=== PATIENT | female | born 1960 | race Caucasian/White ===

== ENCOUNTER 2017-08-16 08:37 | Inpatient (IN) | payer OTHER ==
[2017-08-16] VITALS (12 sets, daily range): BP systolic 100–218; BP diastolic 47–158
[~2017-08-16] VITALS: Ht 165.1 cm; Wt 82.1 kg
--- NOTE | ~2017-08-16 | EKG ---
[place] [address] ELECTROCARDIOGRAM REPORT Name: JOHN GARY Room: [address] IN .R.#: [id number] Admission: 08/16/17 Attend Phys: Marko Venegas MD, Discharge: Date of : 64 Report #: [id number] THIS REPORT FOR: //name// [facility] Test Date: 2017-08-16 Test Time: 11:47:12 Pat Name: JOHN LIU Department: Room: Gender: F Screw Supervisor: ALEX : 1960 Requested By: Felix Escalante Order Number: [id number] MD: Measurements Intervals [place] Rate: 78 P: 57 SD: 157 QRS: 22 QRSD: 99 T: 37 QT: 401 QTc: 457 Interpretive Statements Sinus rhythm Inferior infarct, acute (RCA) Probable RV involvement, suggest recording right precordial leads No previous ECG available for comparison [email or web address] By: 1147 1147 Epiphany EpiphanyMD /EPI
[2017-08-16 09:10] LABS: ABSOLUTE BASOPHILS 0.1 thou/uL (0.0-0.2); ABSOLUTE EOSINOPHILS 0.3 thou/uL (0.0-0.7); ABSOLUTE LYMPHOCYTES 5.3 thou/uL (0.8-5.3); ABSOLUTE NEUTROPHILS 5.3 thou/uL (1.6-8.1); BASOPHILS 0.9 %; EOSINOPHILS 2.3 %; HEMATOCRIT 42.2 % (37.0-47.0); HEMOGLOBIN 14.1 gm/dL (12.0-15.0); LYMPHOCYTES 44.5 %; MCH 27.6 pg (26.0-34.0); MCHC 33.4 g/dL (28.0-37.0); MCV 82.6 fL (80.0-100.0); MONOCYTES 7.9 %; NUCLEATED RBCS 0 /100WBC; PLATELET COUNT* 333 thou/uL (150-400); POLYS 44.4 %; RBC 5.11 mil/uL (4.20-5.00); RDW-CV 15.2 % (10.5-14.5)
[2017-08-16 09:18] LABS: ANION GAP 14 mmol/L (7-16); BUN 15 mg/dL (7-18); CALCIUM 9.5 mg/dL (8.5-10.1); CHLORIDE 102 mmol/L (98-107); CO2 23 mmol/L (21-32); CREATININE 0.9 mg/dL (0.6-1.3); GLUCOSE 180 mg/dL (70-99); POTASSIUM 3.4 mmol/L (3.5-5.1); SODIUM 139 mmol/L (136-145)
[2017-08-16 09:21] LABS: APTT 83.5 Seconds (25.0-31.3); INR 1.1; PROTIME 11.1 Seconds (9.20-11.50)
[2017-08-16 09:25] LABS: ALBUMIN 4.2 g/dL (3.4-5.0); ALKALINE PHOSPHATASE 161 U/L (46-116); CHOLESTEROL 322 mg/dL (<200); HDL CHOLESTEROL 41 mg/dL (>40); LDL CHOLESTEROL 228 mg/dL (<100); SERUM ASSESSMENT Clear; SGOT 46 U/L (15-37); SGPT 45 U/L (30-65); TC:HDL 7.9 Ratio (Not establshd); TOTAL BILIRUBIN 0.6 mg/dL (<0.1-1.0); TRIGLYCERIDE 268 mg/dL (<150); TROPONIN-I LEVEL <0.06 ng/mL (<0.06); VLDL 54 mg/dL (<40)
--- NOTE | 2017-08-16 16:30 | CARD ---
[address] [address] CARDIAC CATH REPORT Name: JOHN GARY Room: [address] ADM IN .R.#: [id number] Admission: 08/16/17 Attend Phys: Marko Venegas MD, Discharge: Date of : 64 Report #: [id number] THIS REPORT FOR: //name// APPROVED REPORT Study performed: 08/16/2017 08:49:42 Patient Details Patient Status: ED Room #: The patient is a 56 year-old female Event Personnel Augustine Eric Conciliator, Marko Venegas Conciliator, Oneyda Germain RN Sill Worker, Ever Cordero (R) Monitor, KokiJaja lisa RTR Scrub Procedures Performed Art Access - R femoral artery* CINDI Place w/wo Plasty Single RCA Hemostasis w/ Angioseal Indication STEMI (>0 to less than or equal to 6 hours) Risk Factors Hypercholesterolemia, Hypertension Admission/Lab Medications/Medications given during procedure Aspirin, Platelet Aff. Inhib., Beta Krista, Heparin IV 4000 units, Heparin Drip IV 900 units per hr, Angiomax IV 10.5 ml, Angiomax Drip IV 27.65 ml per hr, Lopressor IV 5 mg, Nitroglycerin IC 200 mcg, 0.9% Sodium Chloride IV 125 ml per hr, Ticagrelor PO 180 mg, Heparin IV 4000 units, Heparin IV 4000 units, Heparin IV 4000 units, Heparin IV 4000 units, Heparin IV 4000 units, Heparin IV 4000 units Procedure Narrative The patient was brought emergently to the Cardiac Catheterization Laboratory and was prepped and draped in a sterile manner. The right femoral was infiltrated with 2% Lidocaine subcutaneous anesthesia. A 6fr Ultimum Sheath sheath was inserted into the . Coronary angiography was performed using coronary diagnostic catheters. The right coronary system was accessed and visualized with a 6Fr. JR4 catheter. The left coronary system was accessed and visualized with a 6Fr.JL4 catheter. The left ventricle was accessed and visualized with a 6Fr. PIG catheter. Left ventricular/Aortic Valve gradient assessed via catheter pullback. [place] [address] CARDIAC CATH REPORT Name: JOHN GARY Room: [address] IN [facility]#: [id number] Admission: 08/16/17 Attend Phys: Marko Venegas MD, Discharge: Date of : 64 Report #: [id number] projection. Pre-demployment femoral angiogram was performed . Closure device was deployed with a 6 Fr Angioseal. The patient tolerated the procedure well and there were no complications associated with the procedure. There was no hematoma. Fluoro Time: 15.2 minutes Dose: DAP 187058 cGycm2 1949 mGy Contrast Type and Amount: Visipaque 350 ml Coronary Angiography The patient's coronary anatomy is right dominant. Diagnostic Cath Left Main 0% narrowing LAD 30% mid vessel narrowing Circumflex 60% narrowing of the midportion of the nondominant circumflex Right Coronary 100% mid vessel occlusion with intraluminal thrombus Left Ventriculography The left ventricle is normal in size with contractility. The left ventricular ejection fraction is estimated to be 50%. Left ventricular wall motion abnormalities are present. There is no mitral insufficiency. Inferobasilar hypokinesis is noted on left ventriculography IVUS Anticoagulation was achieved with . Angiomax Intravascular Ultrasound was performed on the mid right coronary artery vessel. Hemodynamics The aortic pressure is 175/89 mmHg with a mean of 124 mmHg. The left ventricular pressure is 117/6 mmHg with a mean of mmHg. The left ventricular end diastolic pressure is 16 mmHg. There was no gradient across the aortic valve upon pullback. PCI Technique Lesion Patient was preloaded with Angiomax IV 10.5 ml. Percutaneous coronary intervention was performed on the mid right coronary artery. The lesion stenosis prior to intervention was 100% with ELLEN 0 flow. A 6Fr. JR4 Guide Catheter was used to engage the ostium. A IG: ProwaterFlex 180CM Interventional Guidewire was [place] [address] CARDIAC CATH REPORT Name: JOHN GARY Room: [address] IN .R.#: [id number] Admission: 08/16/17 Attend Phys: Marko Venegas MD, Discharge: Date of : 64 Report #: [id number] BALLOON DILATION A Balloon catheter Trek RX 2.25 X 12 was inserted and inflated up to 10.00atm for 12seconds. Repeat angiography revealed the following post-dilatation results: 50% narrowing. STENT DEPLOYMENT A stent Xience Alpine RX 2.5X15, 2.5x8 was inserted and inflated up to 10.00atm for 12seconds. Additional Inflation: 8.00atm for 14seconds. POST STENT DEPLOYMENT BALLOON DILATION A Balloon catheter Manifold was inserted and inflated up to jarred for seconds. Final angiography reveals 0 % stenosis with ELLEN 3 flow. PCI Technique Lesion Anticoagulation was achieved with Angiomax. Percutaneous coronary intervention was performed on the mid right coronary artery. STENT DEPLOYMENT A stent Xience Alpine RX 2.5X8 was inserted and inflated up to 10.00atm for 10seconds. POST STENT DEPLOYMENT BALLOON DILATION A Balloon catheter Manifold was inserted and inflated up to jarred for seconds. Conclusion #[address] segment elevation myocardial infarction #2 significant coronary artery disease characterized by the following: A 100% mid right coronary occlusion with intraluminal thrombus B 30% mid LAD narrowing C 60% narrowing of the midportion of the nondominant circumflex #3 mild impairment in global left ventricular systolic function, estimated ejection fraction being 50% with inferobasilar hypokinesis #4 successful percutaneous coronary intervention with deployment of sequential drug-eluting stents at the site of 100% [place] [address] CARDIAC CATH REPORT Name: JOHN GARY Room: [address] IN .R.#: [id number] Admission: 08/16/17 Attend Phys: Marko Venegas MD, Discharge: Date of : 64 Report #: [id number] occlusion with 0% residual narrowing ELLEN-3 flow to the distal vessel and no residual thrombus Recommendations Cardiac Risk Reduction Program Aggressive Medical Therapy Medications Administered Aspirin (any) Ticagrelor Diagnostic Cath Approved by: Augustine Eric MD Date/Time: 08/16/17 at 1629 hrs. <ELECTRONICALLY SIGNED> By: Marko Venegas MD, FACC 08/16/171628 28 28Marko Venegas MD, FACC /INF
[2017-08-17] VITALS (11 sets, daily range): BP systolic 80–128; BP diastolic 47–81
[2017-08-17 03:52] LABS: ABSOLUTE BASOPHILS 0.1 thou/uL (0.0-0.2); ABSOLUTE EOSINOPHILS 0.1 thou/uL (0.0-0.7); ABSOLUTE LYMPHOCYTES 3.2 thou/uL (0.8-5.3); ABSOLUTE MONOCYTES 1.2 thou/uL (0.0-1.2); ABSOLUTE NEUTROPHILS 7.1 thou/uL (1.6-8.1); BASOPHILS 0.5 %; EOSINOPHILS 0.8 %; HEMATOCRIT 39.4 % (37.0-47.0); HEMOGLOBIN 12.8 gm/dL (12.0-15.0); LYMPHOCYTES 27.4 %; MCH 27.2 pg (26.0-34.0); MCHC 32.6 g/dL (28.0-37.0); MCV 83.2 fL (80.0-100.0); MONOCYTES 10.3 %; NUCLEATED RBCS 0 /100WBC; PLATELET COUNT* 291 thou/uL (150-400); RBC 4.73 mil/uL (4.20-5.00); RDW-CV 15.4 % (10.5-14.5); WBC 11.6 thou/uL (4.0-11.0)
[2017-08-17 04:14] LABS: ALBUMIN 3.5 g/dL (3.4-5.0); CALCIUM 9.1 mg/dL (8.5-10.1); CREATININE 1.1 mg/dL (0.6-1.3); POTASSIUM 3.8 mmol/L (3.5-5.1); TOTAL BILIRUBIN 0.5 mg/dL (<0.1-1.0); TOTAL PROTEIN 6.7 g/dL (6.4-8.2)
[2017-08-17 04:19] LABS: TROPONIN-I LEVEL 85.85 ng/mL (<0.06)
--- NOTE | 2017-08-17 13:06 | EKG ---
[place] [address] ELECTROCARDIOGRAM REPORT Name: JOHN GARY Room: [address] ADM IN M.R.#: [id number] Admission: 08/16/17 Attend Phys: Marko Venegas MD, Discharge: Date of : 64 Report #: [id number] THIS REPORT FOR: //name// [facility] Test Date: 2017-08-16 Test Time: 11:47:12 Pat Name: JOHN LIU Department: Room: [address] Gender: F Last Repairer Helper: UNK : 1960 Requested By: Augustine Eric Order Number: [id number] Paulino MD: Tristan Marks Measurements Intervals [place] Rate: 78 P: 57 [place]: 157 QRS: 22 QRSD: 99 T: 37 QT: 401 QTc: 457 Interpretive Statements Sinus rhythm Inferior infarct, acute (RCA) Probable RV involvement, suggest recording right precordial leads No previous ECG available for comparison Electronically Signed On 08-17-2017 13:06:27 CDT by Tristan Marks [email or web address] <ELECTRONICALLY SIGNED> By: Tristan Marks MD, [facility] 08/17/17 1306 1147 1147 Tristan Marks MD, [facility] /EPI
--- NOTE | 2017-08-17 13:09 | EKG ---
[place] [address] ELECTROCARDIOGRAM REPORT Name: JOHN GARY Room: [address] ADM IN M.R.#: [id number] Admission: 08/16/17 Attend Phys: Marko Venegas MD, Discharge: Date of : 64 Report #: [id number] THIS REPORT FOR: //name// [facility] Test Date: 2017-08-17 Test Time: 07:40:24 Pat Name: JOHN LIU Department: Room: [address] Gender: F Director Of Surgery: 27 : 1960 Requested By: Augustine Eric Order Number: [id number] Reading : Tristan Marks Measurements Intervals [place] Rate: 61 P: 54 MD: 146 QRS: -18 QRSD: 90 T: -59 QT: 541 QTc: 545 Interpretive Statements Sinus rhythm Inferoposterior infarct, age indeterminate Prolonged QT interval No previous ECG available for comparison Electronically Signed On 08-17-2017 13:08:50 CDT by Tristan Marks [email or web address] <ELECTRONICALLY SIGNED> By: Tristan Marks MD, [facility] 08/17/17 1308 0740 0740 Tristan Marks MD, [facility] /EPI
[2017-08-18] VITALS (8 sets, daily range): BP systolic 81–159; BP diastolic 42–96
[2017-08-18 03:45] LABS: HEMATOCRIT 36.5 % (37.0-47.0); HEMOGLOBIN 11.9 gm/dL (12.0-15.0); MCH 27.6 pg (26.0-34.0); MCHC 32.6 g/dL (28.0-37.0); MCV 84.5 fL (80.0-100.0); MPV 7.7 fl. (7.2-11.1); RBC 4.32 mil/uL (4.20-5.00); RDW-CV 15.1 % (10.5-14.5); WBC 10.6 thou/uL (4.0-11.0)
[2017-08-18 04:09] LABS: ALBUMIN 3.2 g/dL (3.4-5.0); CALCIUM 8.5 mg/dL (8.5-10.1); MAGNESIUM 1.8 mg/dL (1.8-2.4); POTASSIUM 3.5 mmol/L (3.5-5.1); TOTAL BILIRUBIN 0.4 mg/dL (<0.1-1.0); TOTAL PROTEIN 6.1 g/dL (6.4-8.2)
[2017-08-18 04:12] LABS: TROPONIN-I LEVEL 26.53 ng/mL (<0.06)
[2017-08-18] MEDS ORDERED: LISINOPRIL2.5 MG PO (12:41)
[2017-08-18] MEDS ORDERED: COREG6.25 MG PO (12:41)
[2017-08-18] MEDS ORDERED: PLAVIX 75 MG TA75 M1 PO (12:43)
[2017-08-18] MEDS ORDERED: ATORVASTATIN CA40 MG PO (12:44)
[2017-08-18] MEDS ORDERED: ASPIR 8181 MG PO (12:45)
[2017-08-18] MEDS ORDERED: COLACE100 MG PO (12:45)
[2017-08-18] MEDS ORDERED: BRILINTA90 MG PO (12:47)
--- NOTE | 2017-08-19 12:50 | CON ---
[address] [address] CONSULTATION Name: JOHN GARY Room: [address] IN [facility].#: [id number] Admission: 08/16/17 Attend Phys: Marko Venegas MD, Discharge: 08/18/17 Date of : 64 Report #: [id number] THIS REPORT FOR: //name// CC: FAM unknown Marko Venegas DATE OF SERVICE: 08/16/2017 INDICATION: Inferior wall ST elevation myocardial infarction. HISTORY OF PRESENT ILLNESS: The patient is a 56-year-old female who started having chest pain approximately 8:00 this morning. She presented to the Emergency Room at 8:30 and was found to be in the midst of an inferior wall ST elevation myocardial infarction by echocardiogram. The patient was taken urgently to the cardiac catheterization lab. Catheterization showed a totally occluded mid right coronary artery. The remainder of her coronary vasculature was normal. The patient had percutaneous coronary intervention with 2 drug-eluting stents placed to the mid right coronary artery without complication. The patient is now recovering in the Intensive Care Unit. CARDIAC RISK FACTORS: Include hypertension and dyslipidemia. FAMILY HISTORY: Noncontributory. SOCIAL HISTORY: The patient does use an e-cigarette with a nicotine insert. She does not drink alcohol. REVIEW OF SYSTEMS: A 14-point review of systems otherwise as per HPI. PHYSICAL EXAMINATION: VITAL SIGNS: Stable. Blood pressure 153/95, pulse 88 and regular. GENERAL: This is a pleasant lady in no distress. Mood and affect appropriate. HEENT: Extraocular muscles intact. Mucous membranes are moist. NECK: Shows no jugular venous distention. There are no carotid bruits. CHEST: Reveals clear lung aguilar without wheezes, rales or rhonchi. CARDIOVASCULAR: Reveals a regular rhythm with normal S1 and S2. I do not appreciate gallop or murmur. ABDOMEN: Reveals normal bowel sounds. The abdomen is soft, nontender. EXTREMITIES: Shows no edema. Peripheral pulses 2+ and palpable. SKIN: Warm and dry. LABORATORY DATA: Reviewed. Sodium 139, potassium 3.4, chloride 102, bicarbonate 23, BUN 15, creatinine 0.9, serum glucose 180. LFTs are within normal limits. EGFR is 65. Total protein 8.0. Albumin 4.2. Troponin on arrival was less [place] 0[place]06[place] [address] CONSULTATION Name: JOHN GARY Room: [address]#: [id number] Admission: 08/16/17 Attend Phys: Marko Venegas MD, Discharge: 08/18/17 Date of : 64 Report #: [id number] Total cholesterol 322, triglycerides 260, HDL 41, LDL 228. Protime 11.1, INR 1.1, APTT after heparin 83.5. CBC shows a white blood cell count 12.0, hemoglobin 14.1, platelet count 333,000. Chest x-ray pending. IMPRESSION AND RECOMMENDATIONS: 1. ST elevation myocardial infarction, status post drug-eluting stent placement. Continue dual antiplatelet therapy for 1 year. Start a beta loida. 2. Hyperlipidemia. Start atorvastatin 40 mg daily. 3. Hypertension. Increase beta loida as needed for blood pressure control. 4. Nicotine use. Recommend cessation. <ELECTRONICALLY SIGNED> By: Augustine Eric MD, FACC 08/19/17 1250 1723 1741Augustine Eric MD, FACC /nt
[2017-08-19 16:07] LABS: HEPATITIS B SURFACE AG Negative (Negative)
--- NOTE | 2017-08-29 08:10 | D ---
[address] [address] DISCHARGE SUMMARY Name: JOHN GARY Room: [address] IN M.R.#: [id number] Admission: 08/16/17 Attend Phys: Marko Venegas MD, Discharge: 08/18/17 Date of : 64 Report #: [id number] THIS REPORT FOR: //name// CC: FAM unknown Marko Venegas DATE OF SERVICE: 08/18/2017 DIAGNOSES: 1. ST elevation myocardial infarction, inferior. 2. Status post successful percutaneous coronary intervention of the right coronary artery, which was occluded. 3. Hyperlipidemia. 4. Hypertension. HOSPITAL SUMMARY: This patient is a 56-year-old woman who presented with acute chest pain and inferior ST segment elevation on the day of admission and underwent successful PCI to an occluded RCA mid body. There was intraluminal thrombus with successful PCI. She had moderate disease in the circumflex in the 60% region, this is a nondominant vessel and her left main and LAD had only mild disease. Ejection fraction was felt to be in the 50% range. Postprocedurally, she did fairly well. She had some reperfusion arrhythmia on the first 12 hours after being transferred to the ICU, but it resolved over the last 24 hours of her hospitalization. She remained in a sinus rhythm. She did receive Xience drug-eluting stent 2.5 x 15 mm and then 2.5 x 8 mm in the right coronary artery. She will be given samples for Brilinta for 1 week and then Plavix for 1 year. The patient will follow up with Dr. Eric or [facility] as the patient does not currently have insurance. We will arrange for followup with a nurse practitioner within 2 weeks. DISCHARGE MEDICATIONS: Brilinta 1 p.o. b.i.d., aspirin, Coreg 6.25 mg p.o. b.i.d., lisinopril 2.5 mg daily, atorvastatin 40 mg daily. PERTINENT LABORATORY DATA: Peak troponin level was 85.85. Discharge creatinine 1.0, BUN 17. Total cholesterol 322, LDL 228, HDL 41. <ELECTRONICALLY SIGNED> By: Sourav Gonzalez MD, FACC 08/29/17 0810 1231 [id number] Marks MD, FACC /nt
== END 2017-08-18 14:57 | disposition home or self-care (01) | DRG 247 ==
LOC: M.CL 08:37 → M.ERS 08:37 → M.ICU 10:50 → M.2W 08-18 09:08
PROVIDERS: Emergency Medicine Emergency Medical Services; Family Medicine; Internal Medicine Cardiovascular Disease; ADMIT Internal Medicine
PROC: 4A023N7 Measurement of Cardiac Sampling and Pressure, Left Heart, Percutaneous Approach (ICD-10-PCS; principal; 2017-08-16)
PROC: B211YZZ Fluoroscopy of Multiple Coronary Arteries using Other Contrast (ICD-10-PCS; principal; 2017-08-16)
PROC: B215YZZ Fluoroscopy of Left Heart using Other Contrast (ICD-10-PCS; principal; 2017-08-16)
PROC: 027034Z Dilation of Coronary Artery, One Artery with Drug-eluting Intraluminal Device, Percutaneous Approach (ICD-10-PCS; principal; 2017-08-16)
DX: I21.19 ST elevation (STEMI) myocardial infarction involving other coronary artery of inferior wall (principal); F17.290 Nicotine dependence, other tobacco product, uncomplicated; E66.9 Obesity, unspecified; G43.909 Migraine, unspecified, not intractable, without status migrainosus; I95.9 Hypotension, unspecified; K21.9 Gastro-esophageal reflux disease without esophagitis; Z79.82 Long term (current) use of aspirin; Z95.5 Presence of coronary angioplasty implant and graft; Z88.6 Allergy status to analgesic agent; Z79.899 Other long term (current) drug therapy; Z68.30 Body mass index [BMI] 30.0-30.9, adult

== ENCOUNTER 2018-06-30 08:11 | Inpatient (IN) | payer OTHER ==
[2018-06-30] VITALS (23 sets, daily range): BP systolic 97–166; BP diastolic 56–101
[~2018-06-30] VITALS: Ht 165.1 cm; Wt 69.4 kg
[~2018-06-30 08:11] MED LIST: ASPIR 8181 MG PO; ATORVASTATIN CA40 MG PO; BRILINTA90 MG PO; COLACE100 MG PO; COREG6.25 MG PO; LISINOPRIL2.5 MG PO; PLAVIX 75 MG TA75 M1 PO
--- NOTE | 2018-06-30 08:37 | NUR ---
PT TO THE DUST MILL OPERATOR AT 0825.
[2018-06-30 08:49] LABS: ABSOLUTE BASOPHILS 0.1 thou/uL (0.0-0.2); ABSOLUTE EOSINOPHILS 0.2 thou/uL (0.0-0.7); ABSOLUTE LYMPHOCYTES 3.6 thou/uL (0.8-5.3); ABSOLUTE MONOCYTES 0.9 thou/uL (0.0-1.2); ABSOLUTE NEUTROPHILS 5.6 thou/uL (1.6-8.1); BASOPHILS 0.5 %; EOSINOPHILS 1.5 %; HEMATOCRIT 42.5 % (37.0-47.0); HEMOGLOBIN 14.2 gm/dL (12.0-15.0); MCH 28.3 pg (26.0-34.0); MCHC 33.4 g/dL (28.0-37.0); MCV 84.6 fL (80.0-100.0); MONOCYTES 8.3 %; MPV 8.1 fl. (7.2-11.1); NUCLEATED RBCS 0 /100WBC; PLATELET COUNT* 361 thou/uL (150-400); POLYS 54.7 %; RBC 5.03 mil/uL (4.20-5.00); RDW-CV 14.5 % (10.5-14.5); WBC 10.3 thou/uL (4.0-11.0)
[2018-06-30 08:50] LABS: APTT 23.8 Seconds (25.0-31.3); PROTIME 10.1 Seconds (9.20-11.50)
[2018-06-30 08:56] LABS: ANION GAP 12 mmol/L (7-16); BUN 9 mg/dL (7-18); CALCIUM 9.3 mg/dL (8.5-10.1); CHLORIDE 104 mmol/L (98-107); CO2 27 mmol/L (21-32); CREATININE 0.9 mg/dL (0.6-1.3); GLUCOSE 162 mg/dL (70-99); POTASSIUM 3.7 mmol/L (3.5-5.1); SODIUM 143 mmol/L (136-145); TROPONIN-I LEVEL <0.06 ng/mL (<0.06)
[2018-06-30 09:18] LABS: ALBUMIN 3.8 g/dL (3.4-5.0); ALKALINE PHOSPHATASE 146 U/L (46-116); CK-MB MASS 0.9 ng/mL (<0.5-3.6); LIPASE 199 U/L (73-393); NT-PRO BRAIN NAT PEPTIDE 273 pg/mL (<300); SGOT 25 U/L (15-37); SGPT 31 U/L (30-65); TOTAL BILIRUBIN 0.7 mg/dL (<0.1-1.0); TOTAL PROTEIN 7.3 g/dL (6.4-8.2)
--- NOTE | 2018-06-30 16:32 | NUR ---
ASSUMED CARE OF PATIENT PATIENT VERY SOMNULENT. DENIES PAIN OR SOA.
--- NOTE | 2018-06-30 17:57 | EKG ---
[place] [address] ELECTROCARDIOGRAM REPORT Name: DESI GARY Room: [address] ADM IN .R.#: [id number] Admission: 06/30/18 Attend Phys: Sourav Gonzalez MD, F Discharge: Date of : 64 Report #: [id number] THIS REPORT FOR: //name// [facility] ED Test Date: 2018-06-30 Test Time: 08:19:44 Pat Name: DESI LIU Department: Room: [facility] Gender: F Business Systems Consultant: ROHIT : 1960 Requested By: Felix Escalante Order Number: [id number] MD: Sourav Gonzalez Measurements Intervals [place] Rate: 66 P: 64 [place]: 166 QRS: 81 QRSD: 111 T: 93 QT: 408 QTc: 428 Interpretive Statements Sinus rhythm Probable left atrial enlargement Left ventricular hypertrophy Inferior infarct, acute (RCA) Probable RV involvement, suggest recording right precordial leads Baseline wander in lead(s) II,III,aVF Compared to ECG 08/17/2017 07:40:24 Left ventricular hypertrophy now present inferior injury noted Electronically Signed On 06-30-2018 17:57:18 CDT by Sourav Gonzalez [email or web address] <ELECTRONICALLY SIGNED> By: Sourav Gonzalez MD, [facility] 06/30/18 1757 8 8 Sourav Gonzalez MD, [facility] /EPI
--- NOTE | 2018-06-30 17:58 | EKG ---
[place] [address] ELECTROCARDIOGRAM REPORT Name: DESI GARY Room: [address] ADM IN ..#: [id number] Admission: 06/30/18 Attend Phys: Sourav Gonzalez MD, F Discharge: Date of : 64 Report #: [id number] THIS REPORT FOR: //name// [facility] ED Test Date: 2018-06-30 Test Time: 08:21:55 Pat Name: DESI LIU Department: Room: [facility] Gender: F Powerhouse Mechanic: ROHIT : 1960 Requested By: Felix Escalante Order Number: [id number] MD: Sourav Gonzalez Measurements Intervals [place] Rate: 63 P: 60 [place]: 170 QRS: 77 QRSD: 105 T: 89 QT: 396 QTc: 406 Interpretive Statements Sinus rhythm Inferior infarct, acute (RCA) Probable anterolateral infarct, recent Electronically Signed On 06-30-2018 17:58:01 CDT by Sourav Gonzalez [email or web address] <ELECTRONICALLY SIGNED> By: Sourav Gonzalez MD, [facility] 06/30/18 1758 0 0 Sourav Gonzalez MD, [facility] /EPI
--- NOTE | 2018-06-30 18:00 | EKG ---
[place] [address] ELECTROCARDIOGRAM REPORT Name: DESI GARY Room: [address] ADM IN .R.#: [id number] Admission: 06/30/18 Attend Phys: Sourav Gonzalez MD, F Discharge: Date of : 64 Report #: [id number] THIS REPORT FOR: //name// [facility] Test Date: 2018-06-30 Test Time: 10:13:17 Pat Name: DESI LIU Department: Room: [facility] Gender: F Marketing Senior Recruiter: : 1960 Requested By: Sourav Gonzalez Order Number: [id number] MD: Sourva Gonzalez Measurements Intervals [place] Rate: 99 P: 64 [place]: 192 QRS: 91 QRSD: 116 T: 87 QT: 361 QTc: 464 Interpretive Statements Sinus rhythm Supraventricular bigeminy Right atrial enlargement Left ventricular hypertrophy Inferoposterior infarct, acute (RCA) Probable RV involvement, suggest recording right precordial leads Electronically Signed On 06-30-2018 18:00:06 CDT by Sourav Gonzalez [email or web address] <ELECTRONICALLY SIGNED> By: Sourav Gonzalez MD, FACC 06/30/18 1800 1013 1013 Sourav Gonzalez MD, [facility] /EPI
--- NOTE | 2018-06-30 19:08 | NUR ---
PATIENT CO PAIN IN CHEST. GIVEN MS AND NORCO 10. PAIN RELIEVED. CATH SITE TENDER HEMATOMA 5CM, IV RESTARTED LT FA 20. ESTING AT THIS TIME,
--- NOTE | 2018-06-30 21:28 | NUR ---
PATIENT REQUESTS ALL HER PAIN MEDS, SCHEDULED AND PRN, TO BE GIVEN TO HER AT THE SAME TIME. NOT RECEPTIVE TO EDUCATION ON SPACING OUT PAIN MEDS, STATES HER DR TOLD HER SHE SHOULD TAKE HER PAIN MEDS ON TIME EVEN WHEN SHE IS NOT IN PAIN SO SHE "DOESN'T PLAY CATCH UP". RATES PAIN 8/10, HYDROCODONE, MORPHINE, TYLENOL, NITRO ADMINISTERED ORDERED.
--- NOTE | 2018-06-30 22:58 | NUR ---
PATIENT DOES NOT COMPLAIN OF CHEST PAIN. REPORTS PAIN IS IN SHOULDER AREA AND NORMAL FOR HER WHEN SHE SLEEPS. STATES "I AM NOT SURE IF THE PAIN I'M HAVING IS AROUND MY CHEST OR JUST MUSCLES". NITROX3 GIVEN FOR COVERAGE. PATIENT NOW SLEEPING. ASKS ME TO BRING PRN MEDS ON TIME EVEN IF SHE IS SLEEPING, EDUCATED PATIENT ON THE DIFFERENCE B/N PRN AND SCHEDULED MEDS. PATIENT CALM IN DEMEANOR.
[2018-07-01] VITALS (16 sets, daily range): BP systolic 126–164; BP diastolic 65–97
[2018-07-01 04:44] LABS: HEMATOCRIT 33.9 % (37.0-47.0); MCH 28.3 pg (26.0-34.0); MCHC 33.4 g/dL (28.0-37.0); MCV 84.7 fL (80.0-100.0); MPV 7.8 fl. (7.2-11.1); RDW-CV 14.8 % (10.5-14.5); WBC 11.8 thou/uL (4.0-11.0)
[2018-07-01 04:46] LABS: HEMOGLOBIN 11.3 gm/dL (12.0-15.0)
[2018-07-01 04:59] LABS: CHOLESTEROL 124 mg/dL (<200); HDL CHOLESTEROL 42 mg/dL (>40); LDL CHOLESTEROL 59 mg/dL (<100); TRIGLYCERIDE 117 mg/dL (<150); VLDL 23 mg/dL (<40)
[2018-07-01 05:37] LABS: SERUM ASSESSMENT Clear
[2018-07-01 05:38] LABS: TROPONIN-I LEVEL 50.33 ng/mL (<0.06)
--- NOTE | 2018-07-01 06:40 | NUR ---
VITALS STABLE, HYDRALAZINE X1 FOR BP. AFEBRILE. PATIENT DOES NOT COMPLAIN OF CHEST PAIN, BUT REPORTS RIGHT ARM PAIN WHICH SHE SAYS SHE HAS BEEN HAVING FOR THE LAST COUPLE OF WEEKS AND IS RELEIVED WITH POSITIONING. PATIENT COMPAINING OF NAUSEA, ARM PAIN AND BEING HOT AT 0530, EKG AND TROPONIN PERFORMED. PAIN RELEIVED WITH MORPHINE. NITRO GIVEN FOR COVERAGE, BP WNL. PATIENT NOW COMFORTABLE IN BED, HAS HEATING PAD ON ARM PER HER REQUEST. NO CHANGE IN RIGHT GROIN CATH SITE, PATIENT REPORTS SOME TENDERNESS, NO INCREASED HEMATOMA, WARMTH, ACTIVE BLEEDING. CALL LIGHT WITHIN REACH. TURNS SELF IN BED.
--- NOTE | 2018-07-01 14:17 | CON ---
[address] [address] CONSULTATION Name: DESI GARY Room: [address] IN [facility]#: [id number] Admission: 06/30/18 Attend Phys: Sourav Gonzalez MD, F Discharge: Date of : 64 Report #: [id number] THIS REPORT FOR: //name// CC: Sourav Gonzalez [facility] unknown DATE OF SERVICE: 06/30/2018 CARDIOLOGY CONSULTATION HISTORY OF PRESENT ILLNESS: The patient is a 57-year-old white male who I was asked to see in the Emergency Room today after she complained of chest pain. The patient states that last August, she had a stent placed in her heart here at [place]. She has done well since that time. However, this morning, she was at work at [employer] when she complained of chest pain. An ambulance was called. She was brought here to [place]. She is noted to have an inferior STEMI. I was asked to see her on an emergent basis. She denied any recent chest pain, shortness of breath, syncope. PAST MEDICAL HISTORY: She has had previous tonsillectomy. She has a history of hypertension, hyperlipidemia. MEDICATIONS: Includes Lipitor, Plavix, and aspirin. ALLERGIES: She has allergy to CODEINE. FAMILY HISTORY: Negative for heart disease. SOCIAL HISTORY: She is . She and her live here in [place]. She works in [employer]. No smoking or alcohol abuse. REVIEW OF SYSTEMS: She has had no history of stroke, asthma, peptic ulcer disease, liver disease, kidney disease, cancer, psychiatric illness, chronic skin condition. PHYSICAL EXAMINATION: GENERAL: Revealed a middle-aged female, appeared in moderate distress secondary to chest pain. VITAL SIGNS: Blood pressure 100/60, pulse is 70. She is afebrile. HEENT: She was anicteric, conjunctiva pink. Mucous membranes moist. NECK: Veins do not appear distended. No carotid bruits. CHEST: Clear to auscultation. CARDIOVASCULAR: Regular rate and rhythm. ABDOMEN: Soft. EXTREMITIES: No edema. SKIN: [place], [place] [address] CONSULTATION Name: MLECHOR LIUDESI Beulah Room: [address]#: [id number] Admission: 06/30/18 Attend Phys: Sourav Gonzalez MD, F Discharge: Date of : 64 Report #: [id number] NEUROLOGIC: Nonfocal. LABORATORY DATA: ECG, sinus rhythm. She had inferior ST segment elevation up to 3 mm in II, III, aVF, ST segment depression in V2 and V3. IMPRESSION AND RECOMMENDATIONS: 1. Acute inferior ST elevation myocardial infarction. Recommend cardiac catheterization. 2. Previous stent. The patient has been on Plavix. 3. Hyperlipidemia. The patient is on a statin drug. 4. History of hypertension. <ELECTRONICALLY SIGNED> By: Sourav Gonzalez MD, FACC 07/01/18 1417 0835 0922David Zainab Gonzalez MD, [facility] /nt
--- NOTE | 2018-07-01 16:18 | NUR ---
07/01 Days: Patient continues to have muscle skeletal pain that increases with movement on right arm and chest. Improved with [place]- x3 PRN doses given. X1 dose of IV morphine this am. Appetite decreased. Antacids restarted. Patient downgraded this am. Planning to transfer to room 201 when clean.
--- NOTE | 2018-07-01 17:07 | EKG ---
[place] [address] ELECTROCARDIOGRAM REPORT Name: DESI GARY Room: [address] ADM IN M.R.#: [id number] Admission: 06/30/18 Attend Phys: Sourav Gonzalez MD, F Discharge: Date of : 64 Report #: [id number] THIS REPORT FOR: //name// [facility] Test Date: 2018-07-01 Test Time: 04:19:22 Pat Name: DESI LIU Department: Room: [address] Gender: F Certified Pharmacy Technician: VIOLETA : 1960 Requested By: Sourav Gonzalez Order Number: [id number] Paulino MD: Augustine Eric Measurements Intervals [place] Rate: 88 P: 67 [place]: 157 QRS: -14 QRSD: 93 T: -44 QT: 389 QTc: 471 Interpretive Statements Sinus rhythm Inferoposterior infarct, recent Baseline wander in lead(s) I,II,aVR,aVF,V1,V2 Compared to ECG 06/30/2018 10:13:17 Atrial premature complex(es) no longer present Atrial abnormality no longer present Left ventricular hypertrophy no longer present Myocardial infarct finding still present Electronically Signed On 07-01-2018 17:07:32 CDT by Augustine Eric [email or web address] <ELECTRONICALLY SIGNED> By: Augustine Eric MD, [facility] 07/01/18 1707 0419 Augustine Eric MD, [facility] /EPI
--- NOTE | 2018-07-01 17:26 | NUR ---
PT TRANSFERRED TO TELE ROOM 201 AT THIS TIME. REPORT RECEIVED FROM CARTRIDGE GAUGER. DENNIS CATHETER REMOVED PRIOR TO TRANSFER. NO OTHER CONCERNS AT THIS TIME. CLWR. WCTM.
[2018-07-02] VITALS: BP 126/74
--- NOTE | 2018-07-02 03:18 | NUR ---
ASSUMED PT CARE @ 1930. A+OX4. TRACING SR ON MONITOR. DENIES CHEST PAIN. RIGHT SHOULDER AND BACK PAIN RELIEVED W HEATING PAD AND PRN PAIN MEDICATION. PT UP X 1 ASSIST. AMBULATED TO BATHROOM. WAS ABLE TO VOID (JEANNIE D/C'D ON DAY SHIFT). PT IS CURRENTLY RESTING. CALL LIGHT IN REACH. HOURLY ROUNDING FOR SAFETY.
[2018-07-02 04:44] VITALS: BP 87/51
[2018-07-02 07:23] VITALS: BP 114/63
[2018-07-02 09:30] VITALS: BP 114/63
[2018-07-02 09:39] VITALS: BP 114/63
[2018-07-02] MEDS ORDERED: NITROGLYCERIN0.4 MG SUBLING (09:48)
[2018-07-02] MEDS ORDERED: STUDY DRUG PO (09:50)
[2018-07-02 11:54] VITALS: BP 118/76
[2018-07-02 12:17] LABS: CREATININE 0.9 mg/dL (0.6-1.3); POTASSIUM 3.5 mmol/L (3.5-5.1)
[2018-07-02 12:18] LABS: CALCIUM 8.9 mg/dL (8.5-10.1)
--- NOTE | 2018-07-02 12:46 | NUR ---
ASSUMED CARE OF PATIENT AROUND 0730 THIS AM. REFER TO ASSESSMENT. PT HAS NO C/O CP OVERNIGHT OR THIS AM. PT GIVEN DC ORDERS. ORDERS REVIEWED WITH PT AND PT REPORTS UNDERSTANDING. PT GIVEN THREE SCRIPTS. NO OTHER CONCERNS AT THIS TIME. CLWR. WCTM.
--- NOTE | 2018-07-02 15:36 | EKG ---
[place] [address] ELECTROCARDIOGRAM REPORT Name: DESI GARY Room: [address] R.#: [id number] Admission: 06/30/18 Attend Phys: Sourav Gonzalez MD, F Discharge: 07/02/18 Date of : 64 Report #: [id number] THIS REPORT FOR: //name// [facility] Test Date: 2018-07-02 Test Time: 08:49:07 Pat Name: DESI LIU Department: Room: [facility] Gender: F Die Filer: : 1960 Requested By: Sourav Gonzalez Order Number: [id number] Reading MD: Sourav Gonzalez Measurements Intervals [place] Rate: 94 P: 53 GA: 157 QRS: 52 QRSD: 97 T: -56 QT: 394 QTc: 493 Interpretive Statements Sinus rhythm Inferoposterior infarct, age indeterminate Lateral leads are also involved Baseline wander in lead(s) V3,V4 Compared to ECG 07/01/2018 04:19:22 No significant changes Electronically Signed On 07-02-2018 15:36:04 CDT by Sourav Gonzalez [email or web address] <ELECTRONICALLY SIGNED> By: Sourav Gonzalez MD, [facility] 07/02/18 1536 0849 0849 Sourav Gonzalez MD, [facility] /EPI
--- NOTE | 2018-07-03 14:09 | D ---
[address] [address] DISCHARGE SUMMARY Name: DESI GARY Room: [address]#: [id number] Admission: 06/30/18 Attend Phys: Sourav Gonzalez MD, F Discharge: 07/02/18 Date of : 64 Report #: [id number] THIS REPORT FOR: //name// CC: Sourav DAVIS unknown DATE OF SERVICE: 07/02/2018 DISCHARGE DIAGNOSES: 1. Acute inferior wall myocardial infarction. 2. Coronary artery disease. 3. Hyperlipidemia. 4. Previous tobacco abuse. CONSULTANTS: None. PROCEDURES: Emergent left heart catheterization with attempted angioplasty of the right coronary artery via the femoral approach. HISTORY OF PRESENT ILLNESS: The patient is a 57-year-old white female who came to the Emergency Room complaining of chest pain. The patient initially presented in 08/2017 with chest pain. She was found to be having an acute inferior STEMI. A code STEMI was activated by paramedics. The patient was seen on an emergent basis by my partner, Dr. Augustine Eric. She underwent a cardiac catheterization by my partner, Dr. Venegas. She was found to have an acute occlusion of the mid right coronary artery. She was given Angiomax. The LAD and circumflex had no significant disease. Ejection fraction was 50%. She had a single drug-eluting stent placed. She was loaded with Brilinta. She was then discharged. Unfortunately, at one point the patient had no medical insurance and did not return for followup. However, she states she had been taking her medications. She was doing well until the morning of admission, she went to work at [employer], began to have chest pain. An ambulance was called. She was found to be having acute inferior STEMI. Code STEMI was activated. PAST MEDICAL HISTORY: She has had a previous tonsillectomy. She has hypertension, hyperlipidemia. MEDICATIONS: Lipitor, Plavix, aspirin, carvedilol. ALLERGIES: CODEINE. PHYSICAL EXAMINATION: VITAL SIGNS: Blood pressure 100/60, pulse 70. CHEST: Clear to auscultation. CARDIAC: Regular rate and rhythm. ABDOMEN: [place] [address] DISCHARGE SUMMARY Name: MELCHOR KENDRICKJOHNDESI Y Room: [address]#: [id number] Admission: 06/30/18 Attend Phys: Sourav Gonzalez MD, F Discharge: 07/02/18 Date of : 64 Report #: [id number] EXTREMITIES: No edema. SKIN: Warm and dry. LABORATORY DATA: ECG, sinus rhythm, acute inferior ST segment elevation. The remaining workup, she did have a portable chest x-ray that showed normal heart size, clear lung aguilar. Her remaining workup included sodium 143, glucose was 162. Liver function studies were normal. On admission, her troponin was 0.15. Cholesterol 124, triglyceride 117, HDL 42, LDL 59. White blood cell count 10.3, hemoglobin 14.2. HOSPITAL COURSE: The patient was taken urgently to the cardiac catheterization lab. Emergent cardiac catheterization was performed from the right femoral artery. Results, there was no significant disease in the LAD or circumflex. There was a stent in the mid right coronary artery that appeared to be acutely occluded. I attempted angioplasty. There was difficulty advancing the wire across the occlusion. I used an extra support guiding catheter. She developed a dissection of the proximal right coronary artery. Unfortunately, during the procedure, despite the use of fentanyl and Versed, the patient became very agitated and combative. She was confused and would not reason. She would not lie still on the table despite restraints. It became pretty clear during the procedure that the patient will require general anesthetic to complete the procedure because of her inability to cooperate and her combativeness. I was able to pass a wire and a balloon through the occlusion after additional efforts. However, repairing the long dissection caused by the guiding catheter would require multiple stents and a prolonged procedure. Rather than placing the patient under general anesthetic, it was decided to abandon the procedure at that point. She had stable vital signs and no significant disease in the LAD or circumflex. At that time, the patient's chest pain had improved. An Angio-Seal was placed. The patient was taken to recovery room. She continued to be combative. She was then given morphine and became more cooperative. It was unclear whether the reaction was secondary to a foreign substance that the patient had taken prior to arrival to the hospital, though she denied any illicit drug use. It is also possible that she had a paradoxical response to the Versed and fentanyl. Fortunately, the patient's chest pain resolved. She had no significant arrhythmias, heart failure, or recurrent angina. Prior to discharge, she was ambulating with Cardiac Rehabilitation. The patient did decide to enroll in the [place] trial, which would randomize this patient to either an CURT inhibitor or Entresto since her ejection fraction is 40%, though she did not develop any heart failure. She was discharged on aspirin 81 mg a day. She was taken off the Plavix since the stent had occluded. She was to continue Lipitor 40 mg a day, carvedilol 6.25 mg twice a day and the study drug, which is either Entresto or ramipril, twice a day. She was given nitroglycerin to take as needed for chest pain. She was not to return to work at this time. She is scheduled return to see my nurse practitioner in 1 week. If she remains stable, she will then be given a return to work release. She will follow up in my office while being in the [place] study. Her prognosis is guarded due to [address] [address] DISCHARGE SUMMARY Name: DESI GARY Room: [address]#: [id number] Admission: 06/30/18 Attend Phys: Sourav Goznalez MD, F Discharge: 07/02/18 Date of : 64 Report #: [id number] her mild left ventricular systolic dysfunction following her acute inferior wall myocardial infarction. The patient was to contact my office if she had recurrent chest pain, shortness of breath, palpitations. At the time of discharge she had a blood pressure 110/60, pulse was 90, she was afebrile. Followup ECG showed a sinus rhythm with inferior Q-waves. I did recommend the patient obtain a primary care physician in the [place] area. I did recommend that she stop abusing nicotine. <ELECTRONICALLY SIGNED> By: Sourav Gonzalez MD, [facility] 07/03/18 1409 0822 1543David Zainab Gonzalez MD, FACC /nt
--- NOTE | 2018-07-07 15:56 | CARD ---
[address] [address] CARDIAC CATH REPORT Name: DESI GARY Room: [address]#: [id number] Admission: 06/30/18 Attend Phys: Sourav Gonzalez MD, F Discharge: 07/02/18 Date of : 64 Report #: [id number] THIS REPORT FOR: //name// ADDENDUM APPROVED REPORT Study performed: 06/30/2018 08:03:10 Patient Details Patient Status: ED Room #: The patient is a 57 year-old female Event Personnel Sourav Gonzalez Awnings Mechanic, Binta San RN Wire Frame Dipper, Win Miller PLUG SHAPER HAND Monitor, Ever Cordero (R) Scrub Procedures Performed Left Heart Cath w/or w/o Coronaries [id number] LHC , FFR Indication Abnormal ECG, STEMI (>0 to less than or equal to 6 hours), Chest pain Risk Factors Hypercholesterolemia Previous Procedures/Diagnoses Previous PCI Admission/Lab Medications/Medications given during procedure Glycoprotein IllbIlla Inhibitors, Heparin Unfract. Procedure Narrative The patient was brought emergently to the Cardiac Catheterization Laboratory and was prepped and draped in a sterile manner. The right femoral was infiltrated with 1% Lidocaine subcutaneous anesthesia. A 6fr Ultimum Sheath sheath was inserted into the right femoral artery. Coronary angiography was performed using coronary diagnostic catheters. The right coronary system was accessed and visualized with a Diagnostic catheter. The left coronary system was accessed and visualized with a Diagnostic catheter. The left ventricle was accessed and visualized with a PIG catheter. Left ventricular/Aortic Valve gradient assessed via catheter pullback[place] [address] CARDIAC CATH REPORT Name: DESI GARY Room: [address]#: [id number] Admission: 06/30/18 Attend Phys: Sourav Gonzalez MD, F Discharge: 07/02/18 Date of : 64 Report #: [id number] was performed in MAYER projection. Closure device was deployed with a 6 Fr Angioseal. There was no hematoma. Intraoperative Conscious Sedation Fentanyl 75 mcg Dose: 964 mGy Contrast Type and Amount: Visipaque 140 ml Coronary Angiography The patient's coronary anatomy is right dominant. Diagnostic Cath Left Main 0% stenosis LAD 0% stenosis Circumflex 0% stenosis Right Coronary stent in mid rca appeared acutely occluded Left Ventriculography The left ventricular ejection fraction is estimated to be 40%. Left ventricular wall motion abnormalities are present. There is no mitral insufficiency. inferior akinesis noted Hemodynamics The aortic pressure is 229/108 mmHg with a mean of 157 mmHg. The left ventricular pressure is 206/10 mmHg with a mean of mmHg. The left ventricular end diastolic pressure is 11 mmHg. There was no gradient across the aortic valve upon pullback. Pullback from the left ventricle to the aorta revealed no gradient across the aortic valve. PCI Technique Lesion Anticoagulation was achieved with Heparin. bolus of iv aggrastat given Percutaneous coronary intervention was performed on the mid right coronary artery. The lesion stenosis prior to intervention was 100% with ELLEN 0 flow. A 6 fr amplatz right I Guide Catheter was used to engage the rca ostium. A fielder xt Interventional Guidewire was used to cross the lesion. BALLOON DILATION A Balloon catheter 2.5 x 12 mm was inserted and inflated up to 0atm for 0seconds. Final angiography reveals 100 % stenosis with [place]LL[place] 0 [place] [address] CARDIAC CATH REPORT Name: DESI GARY Room: [address]#: [id number] Admission: 06/30/18 Attend Phys: Sourav Gonzalez MD, F Discharge: 07/02/18 Date of : 64 Report #: [id number] COMMENTS Significant tortuosity was noted of the proximal rca. Although the JR4 guide catheter was able to cannulate the ostium, the BMW wire initially used did not have enough stiffness to push across the total occlusion despite using a guideliner. Attempted PTCA using a amplatz right I quide catheter to provide additional support. Using the guideliner catheter, a stiffer Merdeith XT wire was able to be advanced through the occlusion and a 2.5 x 12 mm PTCA balloon was advanced over the wire into the distal rca. However, angiogram revealed that the guide catheter had caused an ostial spiral dissection in the proximal rca. The patient became very combative because of the situation and was uncooperative despite the administration of IV fentanyl and versed. General anesthesia would have been required to finish the procedure. The patient had stable hemodynamics and it was felt the repairing the dissection with multiple stents would be difficult. It was therefore decided to finish the procedure without additional attempts at reperfusion. It was unclear whether the patient's difficult mental status was secondary to underlying mental condition or was an abnormal reaction to the sedatives administered. The patient continued to be combative and uncooperative after the procedure was terminated. Conclusion 1. Subacute occlusion of a stent in the mid rca 2. LVEF 40% 3. Unable to perform PTCA of the RCA occlusion because of tortuosity of the proximal rca with large thrombus burden, and patient combativeness 4. Use of guiding catheter lead to ostial dissection of the rca Recommendations Cardiac Rehabilitation Referral Aggressive Medical Therapy <ELECTRONICALLY SIGNED> By: Sourav Gonzalez MD, FACC 07/07/18 1556 1556 1556Sourav Gonzalez MD, FACC /INF
== END 2018-07-02 13:39 | disposition home or self-care (01) | DRG 280 ==
LOC: M.ERS 08:11 → M.CL 08:11 → M.TBA-CV 08:30 → M.ICU 08:30 → M.TBA-CV 08:30 → M.ICU 15:27 → M.2W 07-01 17:30
PROVIDERS: Emergency Medicine Emergency Medical Services; ADMIT Internal Medicine Cardiovascular Disease
PROC: B2111ZZ Fluoroscopy of Multiple Coronary Arteries using Low Osmolar Contrast (ICD-10-PCS; principal; 2018-07-01)
PROC: 4A023N7 Measurement of Cardiac Sampling and Pressure, Left Heart, Percutaneous Approach (ICD-10-PCS; principal; 2018-07-01)
PROC: B2151ZZ Fluoroscopy of Left Heart using Low Osmolar Contrast (ICD-10-PCS; principal; 2018-07-01)
PROC: 02JA3ZZ Inspection of Heart, Percutaneous Approach (ICD-10-PCS; principal; 2018-07-01)
DX: I21.19 ST elevation (STEMI) myocardial infarction involving other coronary artery of inferior wall (principal); I50.23 Acute on chronic systolic (congestive) heart failure; T82.897A Other specified complication of cardiac prosthetic devices, implants and grafts, initial encounter; E78.5 Hyperlipidemia, unspecified; I25.10 Atherosclerotic heart disease of native coronary artery without angina pectoris; Y83.8 Other surgical procedures as the cause of abnormal reaction of the patient, or of later complication, without mention of misadventure at the time of the procedure; Z95.5 Presence of coronary angioplasty implant and graft; Z87.891 Personal history of nicotine dependence; Z79.82 Long term (current) use of aspirin; Z79.899 Other long term (current) drug therapy; Z88.5 Allergy status to narcotic agent; Y92.89 Other specified places as the place of occurrence of the external cause; I11.0 Hypertensive heart disease with heart failure